=== PATIENT | male | born 1960 | race Caucasian/White ===

== ENCOUNTER 2018-05-19 23:07 | Emergency (ER) | payer SELFPAY ==
[2018-05-19] MEDS ORDERED: ALBUTEROL SULFATE 0.083% NEB 2.5 MG/3 ML AMPUL NEB ONE (23:20)
[2018-05-19] MEDS ORDERED: IPRATROPIUM/ALBUTEROL 0.5-2.5 MG/3 ML AMPUL NEB ONE (23:20)
[2018-05-19] MEDS ORDERED: METHYLPREDNISOLONE INJ 125 MG/2 ML SDV IV ONE (23:20)
--- NOTE | 2018-05-19 23:22 | ER Document Report ---
ED General - General Chief Complaint: Shortness Of Breath Stated Complaint: SHORT OF BREATH Time Seen by Provider: 05/19/18 23:19 Notes: Patient is a 58-year-old male without chronic medical problems, does smoke tobacco daily, presents with 3 days of increasingly worsening shortness of breath and feelings like he is wheezing. He states that the symptoms are worse at night and wonders if it may be related to animal dander exposure as there are cats in his room. Patient denies known history of asthma in the past. He states that he has not trying to improve his symptoms and that he is uncertain of what worsens or triggers his symptoms. He has a history of similar symptoms prior to the past several days. He has not seen his general physician regarding today's concerns. He denies chest pain, fever or constitutional symptoms but does note that he has had associated coughing. TRAVEL OUTSIDE OF THE [place] IN LAST 30 DAYS: No Past Medical History - General Information source: Patient - Social History Smoking Status: Current Every Day Smoker Frequency of alcohol use: None Drug Abuse: None Lives with: Family Family History: Reviewed & Not Pertinent Review of Systems - Review of Systems Notes: Constitutional: Negative for fever. HENT: Negative for sore throat. Eyes: Negative for visual changes. Cardiovascular: Negative for chest pain. Respiratory: Positive for shortness of breath and cough Gastrointestinal: Negative for abdominal pain, vomiting or diarrhea. Genitourinary: Negative for dysuria. Musculoskeletal: Negative for back pain. Skin: Negative for rash. Neurological: Negative for headaches, weakness or numbness. 10 point ROS negative except as marked above and in HPI. Physical Exam - Vital signs Vitals: Temp Pulse Resp BP Pulse Ox 98.5 F 97 30 H 133/77 H 93 05/19/18 23:07 05/19/18 23:07 05/19/18 23:07 05/19/18 23:07 05/19/18 23:07 Interpretation: Hypertensive, Tachypneic Notes: PHYSICAL EXAMINATION: GENERAL: Appears somewhat unwell, in moderate respiratory distress HEAD: Atraumatic, normocephalic. EYES: Pupils equal round and reactive to light, extraocular movements intact, sclera anicteric, conjunctiva are normal. ENT: nares patent, oropharynx clear without exudates. Moderately dry mucous membranes. NECK: Normal range of motion, supple without lymphadenopathy LUNGS: Moderate respiratory distress, unable to speak in a complete sentence. Intercostal retractions are present. Breathing approximately 30-35 times per minute. Diminished air movement locally throughout, scattered wheezing in all lung kaba in the expiratory phase. HEART: Regular tachycardia without murmurs ABDOMEN: Soft, nontender, normoactive bowel sounds. No guarding, no rebound. No masses appreciated. EXTREMITIES: Normal range of motion, no pitting or edema. No cyanosis. NEUROLOGICAL: No focal neurological deficits. Moves all extremities spontaneously and on command. PSYCH: Normal mood, normal affect. SKIN: Warm, Dry, normal turgor, no rashes or lesions noted. Course - Re-evaluation Re-evalutation: 05/19/18 23:21 Patient presents in moderate rotatory distress, severe wheezing and lung kaba, unable to speak in full sentence. He is tachypneic, scattered wheezing in all lung kaba with diminished air movement throughout. No known history of asthma. He does currently smoke every day. Will begin continuous epidural nebulizers, IV Solu-Medrol, placed on lunchroom monitor, obtain chest x-ray, labs and reassess. Patient is in guarded condition given his degree of distress and will require frequent and regular reassessments. 05/20/18 2350 Patient is having gradual improvement of his work of breathing and wheezing on continuous nebulizers. Will continue to reassess. 05/20/18 01:04 Chest x-ray without any evidence of acute infiltrate or pneumothorax. Initial laboratories are normal. Patient is overall much improved at this time, only minimal wheezes at this point on exam. Saturating anywhere between 90-95% on room air. No longer having retractions or difficulty speaking in full sentence. Will again reassess in approximately 30 minutes and if patient continues to be improved plan for likely discharge home. 05/20/18 0200 Patient has continued to have improvement. No distress, significant wheezing or retractions on repeat exam. He will be sent home with an MDI inhaler, pr ednisone, cetirizine. At this time will discharge with return precautions and follow-up recommendations. Verbal discharge instructions given a the bedside and opportunity for questions given. Medication warnings reviewed. Patient is in agreement with this plan and has verbalized understanding of return precautions and the need for primary care follow-up in the next 24-72 hours. - Vital Signs Vital signs: Temp Pulse Resp BP Pulse Ox 98.5 F 97 30 H 133/77 H 93 05/19/18 23:07 05/19/18 23:07 05/19/18 23:07 05/19/18 23:07 05/19/18 23:07 - Laboratory Result Diagrams: 05/20/18 00:01 05/20/18 00:01 Laboratory results interpreted by me: 05/20/18 00:01 Chloride 108 H Glucose 189 H - Diagnostic Test Radiology reviewed: Image reviewed, Reports reviewed Radiology results interpreted by me: 05/20/18 01:05 Chest x-ray: No acute infiltrate pneumothorax - EKG Interpretation by Me Additional EKG results interpreted by me: 05/20/18 02:37 Sinus rhythm. Rate 83. No ST elevations or depressions. QTC is 447. Critical Care Note - Critical Care Note Total time excluding time spent on procedures (mins): 36 Comments: Critical care time spent obtaining history from patient or surrogate, development of treatment plan with patient or surrogate, evaluation of patient's response to treatment, examination of patient, ordering and performing treatments and interventions, ordering and review of laboratory studies, re- evaluation of patient's condition, ordering and review of radiographic studies and review of old charts Discharge - Discharge Clinical Impression: Respiratory distress, Shortness of breath Acute asthma exacerbation Qualifiers: Asthma severity: moderate Asthma persistence: unspecified Qualified Code(s): J45.901 - Unspecified asthma with (acute) exacerbation Condition: Good Disposition: HOME, SELF-CARE Additional Instructions: You were seen for an asthma exacerbation likely triggered by an allergen exposure. Your symptoms improved with treatment here in the emergency department. However, it is very important that you return to the emergency department immediately if you began to have worsening difficulty breathing that does not respond to your normal home nebulizers. You are also being sent home on a five-day course of steroids that you should start taking tomorrow. Please also take cetirizine 10 mg daily which can be purchased directly over the counter. Use the inhaler with which you have been sent home for wheezing or shortness of breath every 2-4 hours as needed. Please also follow closely with your primary care physician. you should also return to emergency department if you develop fever greater than 101, persistent cough, persistent vomiting, pass out, or any other symptoms that are concerning to you. Prescriptions: Albuterol Sulfate [Proair HFA Inhalation Aerosol 8.5 gm MDI] 2 puff IH Q4H PRN #1 mdi PRN Reason: Prednisone [Deltasone 20 mg Tablet] 2 tab PO DAILY 5 Days tablet
[2018-05-20 00:34] LABS: ABSOLUTE BASOPHILS # (AUTO) 0.1 10^3/uL (0.0-0.2); ABSOLUTE EOSINOPHILS # (AUTO) 0.5 10^3/uL (0.0-0.6); ABSOLUTE LYMPHOCYTES (AUTO) 1.8 10^3/uL (0.5-4.7); ABSOLUTE MONOCYTES (AUTO) 0.8 10^3/uL (0.1-1.4); ABSOLUTE NEUT (AUTO) 6.1 10^3/uL (1.7-8.2); BASOPHILS % (AUTO) 0.8 % (0-2); EOSINOPHILS % (AUTO) 5.2 % (0-6); HEMATOCRIT 42.2 % (37.9-51.0); HEMOGLOBIN 14.4 g/dL (13.5-17.0); LYMPHOCYTES % (AUTO) 19.5 % (13-45); MEAN CORPUSCULAR HEMOGLOBIN 32.1 pg (27.0-33.4); MEAN CORPUSCULAR VOLUME 94 fl (80-97); MONOCYTES % (AUTO) 8.3 % (3-13); PLATELET COUNT 188 10^3/uL (150-450); RED BLOOD COUNT 4.48 10^6/uL (4.35-5.55); RED CELL DISTRIBUTION WIDTH 13.4 % (11.5-14.0); SEGMENTED NEUTROPHILS % (AUTO) 66.2 % (42-78); TOTAL CELLS COUNTED % (AUTO) 100 %; WHITE BLOOD COUNT 9.3 10^3/uL (4.0-10.5)
--- NOTE | 2018-05-20 01:00 | RADIOLOGY REPORT (SQ) ---
XR CHEST 1 VIEW HISTORY: SOB. COMPARISON: None. FINDINGS: The cardiomediastinal silhouette is unremarkable. The lungs are clear. No pleural effusion or pneumothorax is identified. IMPRESSION: No acute cardiopulmonary abnormality.
[2018-05-20 01:03] LABS: ANION GAP 10 (5-19); BLOOD UREA NITROGEN 20 mg/dL (7-20); CALCIUM 8.9 mg/dL (8.4-10.2); CARBON DIOXIDE 24 mmol/L (22-30); CHLORIDE 108 mmol/L (98-107); GLUCOSE 189 mg/dL (75-110); POTASSIUM 3.8 mmol/L (3.6-5.0); SODIUM 141.5 mmol/L (137-145)
[2018-05-20] MEDS ORDERED: ALBUTEROL SULFATE HFA (90 MCG/PUFF) 200 PUFF/8.5 GM MDI IH ONE (01:07)
[2018-05-20] MEDS ORDERED: CETIRIZINE 10 MG TABLET PO ONE (01:07)
[2018-05-20 03:06] VITALS: BP 125/82
--- NOTE | 2018-05-20 06:32 | EKG REPORT ---
SEVERITY:- NORMAL ECG - SINUS RHYTHM : Confirmed by: Roel Beck MD 20-May-2018 06:32:12
== END 2018-05-20 01:55 | disposition home or self-care (01) ==
LOC: ER 23:07
DX: R06.03 Acute respiratory distress (principal); R06.02 Shortness of breath; R05 Cough; J45.901 Unspecified asthma with (acute) exacerbation; F17.200 Nicotine dependence, unspecified, uncomplicated
CPT/HCPCS: 93005; 94640 ×2; 99284; 96374; 36415; 85025; 80048; 83880; 71045; 93010; J2930; J3490; J7620

== ENCOUNTER 2018-08-31 02:53 | Emergency (ER) | payer SELFPAY ==
[2018-08-31] MEDS ORDERED: IPRATROPIUM/ALBUTEROL 0.5-2.5 MG/3 ML AMPUL NEB ONE ×2 (03:25→03:31)
[2018-08-31] MEDS ORDERED: PREDNISONE 20 MG TABLET PO ONE (03:31)
--- NOTE | 2018-08-31 03:58 | RADIOLOGY REPORT (SQ) ---
EXAM DESCRIPTION: XR CHEST 1 VIEW COMPLETED DATE/TME: 08/31/2018 03:31 CLINICAL HISTORY: 58 years, Male, dyspnea COMPARISON: None. NUMBER OF VIEWS: 1 TECHNIQUE: Portable chest LIMITATIONS: None. FINDINGS: Heart size normal. Lungs clear. No pneumothorax IMPRESSION: Negative chest copyright 2010 [employer]- All Rights Reserved
[2018-08-31] MEDS ORDERED: ALBUTEROL SULFATE HFA (90 MCG/PUFF) 8 GM MDI (1 MDI/ER DISP) IH ONE (05:03)
--- NOTE | 2018-08-31 05:05 | ER Document Report ---
ED General - General Chief Complaint: Shortness Of Breath Stated Complaint: DIFFICULTY BREATHING Time Seen by Provider: 08/31/18 03:26 TRAVEL OUTSIDE OF THE [place] IN LAST 30 DAYS: No Past Medical History - Social History Smoking Status: Current Every Day Smoker Family History: Reviewed & Not Pertinent Patient has suicidal ideation: No Patient has homicidal ideation: No - Past Medical History Cardiac Medical History: Reports: Hx Hypertension Renal/ Medical History: Denies: Hx Peritoneal Dialysis Physical Exam - Vital signs Vitals: Temp Pulse Resp BP Pulse Ox 98 F 84 28 H 117/78 97 08/31/18 03:00 08/31/18 03:00 08/31/18 03:00 08/31/18 03:00 08/31/18 03:00 Course - Re-evaluation Re-evalutation: 08/31/18 05:04 On reevaluation patient's lung kaba are clear. He looks and feels much improved. He is not in any distress. I feel he safe to be discharged home. I strongly encouraged him to return to ER if he has worsening difficulty breathing, fevers, vomiting, or if he feels unwell. Patient agrees with plan will be discharged home. Patient did have significant wheezing when he arrived. Informed her to try to quit smoking. I did inform the prednisone may raise his blood sugar and therefore he needs to have his blood sugar checked if he is feeling unwell in any way. Dictation of this chart was performed using voice recognition software; therefore, there may be some unintended grammatical errors. 08/31/18 05:04 - Vital Signs Vital signs: Temp Pulse Resp BP Pulse Ox 98 F 84 22 H 104/70 98 08/31/18 03:00 08/31/18 03:00 08/31/18 04:00 08/31/18 04:00 08/31/18 04:00 - Laboratory Laboratory results interpreted by me: 08/31/18 03:33 POC Glucose 114 H Discharge - Discharge Clinical Impression: Dyspnea Qualifiers: Dyspnea type: unspecified Qualified Code(s): R06.00 - Dyspnea, unspecified Condition: Good Disposition: HOME, SELF-CARE Additional Instructions: Please continue to try to cut back on your smoking. We have given you an albuterol inhaler. Please use it as 2 puffs every 4 hours as needed for wheezing or difficulty breathing. Please return to ER immediately if you have worsening difficulty breathing, fevers, or feel unwell. I have prescribed you prednisone. Please have your blood sugar checked if you start feeling unwell or more fatigued. Prescriptions: Prednisone [Deltasone 20 mg Tablet] 1 tab PO DAILY 4 Days tablet Forms: Return to Work
[2018-08-31 05:16] VITALS: BP 118/81
== END 2018-08-31 05:35 | disposition home or self-care (01) ==
LOC: ER 02:53
DX: R06.00 Dyspnea, unspecified (principal); I10 Essential (primary) hypertension; E11.9 Type 2 diabetes mellitus without complications; Z79.84 Long term (current) use of oral hypoglycemic drugs; F17.200 Nicotine dependence, unspecified, uncomplicated
CPT/HCPCS: 94640 ×2; 99285; 82962; 71045; J7512; J3490; J7620

== ENCOUNTER 2018-11-21 10:34 | Emergency (ER) | payer SELFPAY ==
--- NOTE | 2018-11-21 10:54 | ER Document Report ---
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 Patient does have a previous suicide attempt in the past. Patient was most recently admitted to [facility] for 20 days. Patient also has a history of cocaine abuse. Patient has been using cocaine since his discharge from [facility]. Patient does report recent medication changes while he was in the hospital being treated as an inpatient. Patient with a history of depression. I have greeted and performed a rapid initial assessment of this patient. A comprehensive ED assessment and evaluation of the patient, analysis of test results and completion of the medical decision making process will be conducted by additional ED providers. TRAVEL OUTSIDE OF THE [place] IN LAST 30 DAYS: No - Related Data Allergies/Adverse Reactions: No Known Allergies Allergy (Unverified 11/21/18 10:34) Past Medical History - Past Medical History Cardiac Medical History: Reports: Hx Hypertension Renal/ Medical History: Denies: Hx Peritoneal Dialysis Physical Exam - Vital signs Vitals: Temp Pulse Resp BP Pulse Ox 98.9 F 74 16 140/84 H 99 11/21/18 10:38 11/21/18 10:38 11/21/18 10:38 11/21/18 10:38 11/21/18 10:38 - Psychological Associated symptoms: Depressed Course - Vital Signs Vital signs: Temp Pulse Resp BP Pulse Ox 98.9 F 74 16 140/84 H 99 11/21/18 10:38 11/21/18 10:38 11/21/18 10:38 11/21/18 10:38 11/21/18 10:38
[2018-11-21 11:31] LABS: ABSOLUTE LYMPHOCYTES (AUTO) 1.6 10^3/uL (0.5-4.7); ABSOLUTE MONOCYTES (AUTO) 1.3 10^3/uL (0.1-1.4); ABSOLUTE NEUT (AUTO) 5.7 10^3/uL (1.7-8.2); BASOPHILS % (AUTO) 0.4 % (0-2); EOSINOPHILS % (AUTO) 0.1 % (0-6); HEMATOCRIT 43.9 % (37.9-51.0); HEMOGLOBIN 14.9 g/dL (13.5-17.0); LYMPHOCYTES % (AUTO) 18.8 % (13-45); MEAN CORPUSCULAR HEMOGLOBIN 31.6 pg (27.0-33.4); MEAN CORPUSCULAR VOLUME 93 fl (80-97); PLATELET COUNT 227 10^3/uL (150-450); RED BLOOD COUNT 4.73 10^6/uL (4.35-5.55); RED CELL DISTRIBUTION WIDTH 15.3 % (11.5-14.0); SEGMENTED NEUTROPHILS % (AUTO) 65.7 % (42-78); TOTAL CELLS COUNTED % (AUTO) 100 %; WHITE BLOOD COUNT 8.7 10^3/uL (4.0-10.5)
[2018-11-21 11:34] VITALS: BP 119/79
[2018-11-21 11:47] LABS: APPEARANCE,URINE CLEAR; BILIRUBIN,URINE NEGATIVE (NEGATIVE); COLOR,URINE YELLOW; GLUCOSE, URINE 150 mg/dL (NEGATIVE); KETONES,URINE TRACE mg/dL (NEGATIVE); LEUKOCYTE ESTERASE,URINE NEGATIVE (NEGATIVE); NITRITE,URINE NEGATIVE (NEGATIVE); PROTEIN,URINE NEGATIVE (NEGATIVE); URINE SPECIFIC GRAVITY 1.026; UROBILINOGEN,URINE NEGATIVE mg/dL (<2.0)
[2018-11-21 12:01] LABS: ALANINE AMINOTRANSFERASE 23 U/L (21-72); ALBUMIN 3.7 g/dL (3.5-5.0); ALKALINE PHOSPHATASE 40 U/L (38-126); ANION GAP 6 (5-19); ASPARTATE AMINO TRANSFERASE 26 U/L (17-59); BILIRUBIN,DIRECT 0.3 mg/dL (0.0-0.4); BILIRUBIN,TOTAL 0.9 mg/dL (0.2-1.3); BLOOD UREA NITROGEN 30 mg/dL (7-20); CALCIUM 8.9 mg/dL (8.4-10.2); CARBON DIOXIDE 29 mmol/L (22-30); CHLORIDE 105 mmol/L (98-107); GLUCOSE 94 mg/dL (75-110); POTASSIUM 4.5 mmol/L (3.6-5.0); SODIUM 139.5 mmol/L (137-145); TOTAL PROTEIN 5.8 g/dL (6.3-8.2)
[2018-11-21 12:03] LABS: ACETAMINOPHEN < 10 ug/mL (10-30); ALCOHOL < 10 mg/dL (NONE DETECTED); SALICYLATE < 1.0 mg/dL (2.0-20.0)
[2018-11-21 12:05] LABS: URINE AMPHETAMINES SCREEN NEGATIVE; URINE BARBITURATES SCREEN NEGATIVE; URINE BENZODIAZEPINES SCREEN NEGATIVE; URINE COCAINE SCREEN NEGATIVE; URINE MARIJUANA (THC) SCREEN NEGATIVE; URINE METHADONE SCREEN NEGATIVE; URINE PHENCYCLIDINE SCREEN NEGATIVE
--- NOTE | 2018-11-21 12:16 | ER Document Report ---
ED General <MENDEZ DAVIS - Last Filed: 11/21/18 14:22> - General Mode of Arrival: Ambulatory Information source: Patient, [facility] Records TRAVEL OUTSIDE OF THE [place] IN LAST 30 DAYS: No - HPI Onset: Other Onset/Duration: Sudden Quality of pain: No pain Severity: None Pain Level: Denies Associated symptoms: None. denies: Chest pain, Diarrhea, Fever, Headache, Nausea, Vomiting, Shortness of breath, Sore throat, Sweating Exacerbated by: Denies Relieved by: Denies Similar symptoms previously: Yes Recently seen / treated by doctor: Yes <PADMINI WOLF - Last Filed: 11/21/18 17:31> - General Chief Complaint: Suicidal Ideation Stated Complaint: PSYCH EVAL Time Seen by Provider: 11/21/18 10:52 Primary Care Provider: [facility] [Provider Group] - Follow up as needed [facility] [Outside] - Follow up as needed Notes: Patient presents with his mobile fast foods worker and family member with concerns about suicidal ideation with a plan to overdose on his medications. Patient does have a previous suicide attempt in the past. Patient was most recently admitted to [facility] for 20 days. Patient also has a history of cocaine abuse. Patient has been using cocaine since his discharge from [facility]. Patient does report recent medication changes while he was in the hospital being treated as an inpatient. Patient with a history of depression. Patient also states that his of 30 years has left him which has left him heartbroken and he is having a difficult time dealing with this. (PADMINI WOLF) - Related Data Allergies/Adverse Reactions: No Known Allergies Allergy (Unverified 11/21/18 10:34) Past Medical History - General Information source: Patient - Social History Smoking Status: Current Every Day Smoker Cigarette use (# per day): Yes - 15 Chew tobacco use (# tins/day): No Smoking Education Provided: Yes - Smoking cessation counseling was provided for 4 minutes at the bedside Frequency of alcohol use: None Drug Abuse: Cocaine, Marijuana Lives with: Family Family History: Reviewed & Not Pertinent Patient has suicidal ideation: Yes Patient has homicidal ideation: No - Past Medical History Cardiac Medical History: Reports: Hx Hypertension Renal/ Medical History: Denies: Hx Peritoneal Dialysis Psychiatric Medical History: Reports: Hx Depression Past Surgical History: Reports: Hx Abdominal Surgery - hernia, Hx Urinary Tract Surgery - vasectomy <PADMINI WOLF - Last Filed: 11/21/18 17:31> Review of Systems <PADMINI WOLF - Last Filed: 11/21/18 17:31> - Review of Systems Notes: REVIEW OF SYSTEMS: CONSTITUTIONAL : Denies fever, chills, or sweats. Denies recent illness. Denies weight loss, recent hospitalizations. EENT: Denies visual changes, eye pain. Denies sore throat, oral lesions, difficulty swallowing. CARDIOVASCULAR: Denies chest pain. Denies palpitations. Denies lower extremity edema. RESPIRATORY: Denies cough. Denies shortness of breath, wheezing. GASTROINTESTINAL: Denies abdominal pain or distention. Denies nausea, vomiting, or diarrhea. Denies blood in vomitus, stools, or per rectum. Denies black, tarry stools. Denies constipation. GENITOURINARY: Denies difficulty urinating, painful urination, frequency, blood in urine, testicular pain or penile discharge. MUSCULOSKELETAL: Denies back or neck pain or stiffness. Denies joint pain or swelling. SKIN: Denies rash, lesions or sores. HEMATOLOGIC : Denies easy bruising or bleeding. LYMPHATIC: Denies swollen glands. NEUROLOGICAL: Denies confusion or altered mental status. Denies loss of consciousness. Denies dizziness or lightheadedness. Denies headache. Denies weakness or paralysis. Denies problems difficulty with ambulation, slurred speech. Denies sensory loss, numbness, or tingling. Denies seizures. PSYCHIATRIC: Denies anxiety or stress. Positive suicidal ideation (PADMINI WOLF) Physical Exam <PADMINI WOLF - Last Filed: 11/21/18 17:31> - Vital signs Vitals: Temp Pulse Resp BP Pulse Ox 98.9 F 74 16 140/84 H 99 11/21/18 10:38 11/21/18 10:38 11/21/18 10:38 11/21/18 10:38 11/21/18 10:38 - Notes Notes: PHYSICAL EXAMINATION: GENERAL: Well-appearing, well-nourished and in no acute distress. HEAD: Atraumatic, normocephalic. EYES: Pupils equal round and reactive to light, extraocular movements intact, sclera anicteric, conjunctiva are normal. ENT: Nares patent, oropharynx clear without exudates. Moist mucous membranes. NECK: Normal range of motion, supple without lymphadenopathy LUNGS: Breath sounds clear to auscultation bilaterally and equal. No wheezes rales or rhonchi. HEART: Regular rate and rhythm without murmurs ABDOMEN: Soft, nontender, nondistended abdomen. No guarding, no rebound. No masses appreciated. Musculoskeletal: Normal range of motion, no pitting or edema. No cyanosis. NEUROLOGICAL: Cranial nerves grossly intact. Normal speech, normal gait. Normal sensory, motor exams PSYCH: Admits to suicidal ideation denies homicidal ideation or any hallucinations. Does admit to recent cocaine use. SKIN: Warm, Dry, normal turgor, no rashes or lesions noted. (PADMINI WOLF) Course - Laboratory Result Diagrams: 11/21/18 11:08 11/21/18 11:08 <MENDEZ DAVIS - Last Filed: 11/21/18 14:22> - Laboratory Result Diagrams: 11/21/18 11:08 11/21/18 11:08 - EKG Interpretation by Ar EKG shows normal: Sinus rhythm Rate: Normal Rhythm: NSR When compared to previous EKG there are: No significant change <PADMINI WOLF - Last Filed: 11/21/18 17:31> - Re-evaluation Re-evalutation: 11/21/18 17:29 Laboratory 11/21/18 11/21/18 11/21/18 11:02 11:02 11:08 WBC 8.7 RBC 4.73 Hgb 14.9 Hct 43.9 MCV 93 MCH 31.6 MCHC 34.0 RDW 15.3 H Plt Count 227 Seg Neutrophils % 65.7 Lymphocytes % 18.8 Monocytes % 15.0 H Eosinophils % 0.1 Basophils % 0.4 Absolute Neutrophils 5.7 Absolute Lymphocytes 1.6 Absolute Monocytes 1.3 Absolute Eosinophils 0.0 Absolute Basophils 0.0 Sodium Potassium Chloride Carbon Dioxide Anion Gap BUN Creatinine Est GFR ( Amer) Est GFR (Non-Af Amer) Glucose Calcium Total Bilirubin Direct Bilirubin Neonat Total Bilirubin Neonat Direct Bilirubin Neonat Indirect Bili AST ALT Alkaline Phosphatase Total Protein Albumin Urine Color YELLOW Urine Appearance CLEAR Urine pH 6.0 Ur Specific Alpha 1.026 Urine Protein NEGATIVE Urine Glucose (UA) 150 H Urine Ketones TRACE H Urine Blood NEGATIVE Urine Nitrite NEGATIVE Urine Bilirubin NEGATIVE Urine Urobilinogen NEGATIVE Ur Leukocyte Esterase NEGATIVE Urine WBC (Auto) 0 Urine RBC (Auto) 0 Urine Mucus (Auto) RARE Urine Ascorbic Acid NEGATIVE Salicylates Urine Opiates Screen NEGATIVE Urine Methadone Screen NEGATIVE Acetaminophen Ur Barbiturates Screen NEGATIVE Valproic Acid Ur Phencyclidine Scrn NEGATIVE Ur Amphetamines Screen NEGATIVE U Benzodiazepines Scrn NEGATIVE Urine Cocaine Screen NEGATIVE U Marijuana (THC) Screen NEGATIVE Serum Alcohol 11/21/18 11/21/18 11:08 11:08 WBC RBC Hgb Hct MCV MCH MCHC RDW Plt Count Seg Neutrophils % Lymphocytes % Monocytes % Eosinophils % Basophils % Absolute Neutrophils Absolute Lymphocytes Absolute Monocytes Absolute Eosinophils Absolute Basophils Sodium 139.5 Potassium 4.5 Chloride 105 Carbon Dioxide 29 Anion Gap 6 BUN 30 H Creatinine 1.23 Est GFR ( Amer) > 60 Est GFR (Non-Af Amer) > 60 Glucose 94 Calcium 8.9 Total Bilirubin 0.9 Direct Bilirubin 0.3 Neonat Total Bilirubin Not Reportable Neonat Direct Bilirubin Not Reportable Neonat Indirect Bili Not Reportable AST 26 ALT 23 Alkaline Phosphatase 40 Total Protein 5.8 L Albumin 3.7 Urine Color Urine Appearance Urine pH Ur Specific Alpha Urine Protein Urine Glucose (UA) Urine Ketones Urine Blood Urine Nitrite Urine Bilirubin Urine Urobilinogen Ur Leukocyte Esterase Urine WBC (Auto) Urine RBC (Auto) Urine Mucus (Auto) Urine Ascorbic Acid Salicylates < 1.0 L Urine Opiates Screen Urine Methadone Screen Acetaminophen < 10 L Ur Barbiturates Screen Valproic Acid 11.3 L Ur Phencyclidine Scrn Ur Amphetamines Screen U Benzodiazepines Scrn Urine Cocaine Screen U Marijuana (THC) Screen Serum Alcohol < 10 Temp Pulse Resp BP Pulse Ox 98.6 F 72 20 119/79 99 11/21/18 11:00 11/21/18 11:00 11/21/18 11:00 11/21/18 11:00 11/21/18 11:00 58-year-old male presents with complaint of relapse of his cocaine addiction, increased depression. Denies any current suicidal ideation. States that he did try to overdose on medication several months ago but has no current plan now. Vital signs reviewed and within normal limits. Patient does not appear toxic, dehydrated. Previous medical records and nursing notes reviewed. Patient was evaluated by behavioral health and deemed safe for discharge. No significant lab findings. Discharge resources have been provided. Patient was evaluated and treated as appropriate for the patient's presenting symptoms and complaint, with consideration of any critical or life threatening conditions that may be associated with their obtained history and exam as noted above. All results were discussed with patient. Patient provided the opportunity to ask questions, and express concerns. Patient was educated on treatments based on their presumed diagnosis as noted above. At this time we will discharge the patient with return precautions and follow-up recommendations. Verbal discharge instructions given a the bedside. Medication warnings reviewed. Patient is in agreement with this plan and has verbalized understanding of return precautions. After careful consideration I feel that that patient can be safely discharged from the emergency department, they were advised to followup with a primary care physician in 2-3 days. Dictation on this chart was performed using voice recognition software and may result in unintended grammatical, spelling, syntax or errors. (PADMINI WOLF) - Vital Signs Vital signs: Temp Pulse Resp BP Pulse Ox 98.6 F 72 20 119/79 99 11/21/18 11:00 11/21/18 11:00 11/21/18 11:00 11/21/18 11:00 11/21/18 11:00 - Laboratory Laboratory results interpreted by me: 11/21/18 11/21/18 11/21/18 11:02 11:08 11:08 RDW 15.3 H Monocytes % 15.0 H BUN 30 H Total Protein 5.8 L Urine Glucose (UA) 150 H Urine Ketones TRACE H Salicylates < 1.0 L Acetaminophen < 10 L Valproic Acid 11/21/18 11:08 RDW Monocytes % BUN Total Protein Urine Glucose (UA) Urine Ketones Salicylates Acetaminophen Valproic Acid 11.3 L Discharge <MENDEZ DAVIS - Last Filed: 11/21/18 14:22> <PADMINI WOLF - Last Filed: 11/21/18 17:31> - Discharge Clinical Impression: Substance abuse Condition: Stable Disposition: HOME, SELF-CARE Additional Instructions: You have been evaluated by both medical and mental health teams and have been deemed appropriate for discharge. you are encourged to engage in substance abuse treatment and take your prescribed medications as directed. You have been provided a resource list of area providers for both mental health and substance abuse in addition to mobile crisis contact information. AT ANY TIME, IF YOUR SYMPTOMS CHANGE SIGNIFICANTLY OR WORSEN OR YOU DEVELOP NEW SYMPTOMS, RETURN TO THE EMERGENCY DEPARTMENT IMMEDIATELY FOR RE-EVALUATION. Referrals: [facility] [Provider Group] - Follow up as needed [facility] [Outside] - Follow up as needed
--- NOTE | 2018-11-21 20:28 | EKG REPORT ---
SEVERITY:- NORMAL ECG - SINUS RHYTHM : Confirmed by: Kwadwo Casillas 21-Nov-2018 20:27:35
--- NOTE | 2018-11-24 13:15 | PSYCHOLOGICAL NOTE ---
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 Patient was recently treated at [facility] for approximately 20 days after intentional overdose. Patient reports that when asked about suicidal ideation he was talking about his previous attempt that resulted in his inpatient treatment at [facility]. Patient continued to disclose that he has nowhere to live and is concerned that if he does not receive inpatient treatment his sister will not allow him to live at her house anymore. Clinician notes patient's sister reports patient has been stealing and doing cocaine since his release from [facility]. Patient originally confirms substance abuse however then reports that he does not know what cocaine looks like. Toxicology indicates no findings. Patient is alert and orientated to person, place, time and circumstance. Patient presents healthy weight and well-groomed. Clinician notes scar in center of patient's forehead with slight indentation. Mood is slightly anxious with congruent affect. Patient denies current suicidal ideation. [facility] ideation apparently was the patient discussing his previous suicide attempt and treatment. Patient denies homicidal ideation. Delusions are absent behaviors congruent with an intact reality based presentation i.e. organized and linear thought process. Eye contact was well- maintained. Conversational speech has noticeable stutter. Intellectual abilities appear to be low average range. Attention and concentration are good. Insight, judgment, impulse control are fair. Depression per history provided by patient Substance abuse per history provided by family however, patient denies and toxicology indicates no findings R/O TBI/IDD no medication recommendations at this time Impression/Plan: Patient is cleared from acute psychiatric services. Patient does not meet IVC criteria per [place] GS 122C. Patient had originally disclosed suicidal ideation however it was later identified that the patient was discussing his previous suicidal ideation, attempt and inpatient treatment. Patient denied current suicidal ideation. Clinician notes that patient was concerned that if he did not receive inpatient psychiatric treatment he would not be able to live with his sister anymore. Referral to [facility] has been submitted. While there is reports of concerned substance abuse the patient does not present with congruent substance abuse i.e. is unable to disclose what drugs look like or how to use them. Dr. Cook was consulted to care management of this patient; attending physicians in agreement with recommendations and disposition.
== END 2018-11-21 16:30 | disposition home or self-care (01) ==
LOC: ER 10:34
DX: F14.10 Cocaine abuse, uncomplicated (principal); F12.10 Cannabis abuse, uncomplicated; Z63.5 Disruption of family by separation and divorce; R45.851 Suicidal ideations; I10 Essential (primary) hypertension; F17.210 Nicotine dependence, cigarettes, uncomplicated; Z71.6 Tobacco abuse counseling; Z91.5 Personal history of self-harm
CPT/HCPCS: 36415; 80053; 80164; 80307; 81001; 85025; 93005; 93010; 99285

== ENCOUNTER 2018-11-30 10:22 | Emergency (ER) | payer SELFPAY ==
[2018-11-30 10:33] VITALS: BP 118/86
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
[2018-11-30 11:23] LABS: APPEARANCE,URINE CLEAR; BILIRUBIN,URINE NEGATIVE (NEGATIVE); COLOR,URINE YELLOW; GLUCOSE, URINE 150 mg/dL (NEGATIVE); KETONES,URINE 20 mg/dL (NEGATIVE); LEUKOCYTE ESTERASE,URINE NEGATIVE (NEGATIVE); NITRITE,URINE NEGATIVE (NEGATIVE); PROTEIN,URINE NEGATIVE (NEGATIVE); URINE SPECIFIC GRAVITY 1.015; UROBILINOGEN,URINE NEGATIVE mg/dL (<2.0)
[2018-11-30 11:32] LABS: ABSOLUTE LYMPHOCYTES (AUTO) 1.3 10^3/uL (0.5-4.7); ABSOLUTE MONOCYTES (AUTO) 0.6 10^3/uL (0.1-1.4); ABSOLUTE NEUT (AUTO) 5.4 10^3/uL (1.7-8.2); BASOPHILS % (AUTO) 0.5 % (0-2); EOSINOPHILS % (AUTO) 0.4 % (0-6); HEMOGLOBIN 14.4 g/dL (13.5-17.0); LYMPHOCYTES % (AUTO) 18.2 % (13-45); MEAN CORPUSCULAR HEMOGLOBIN 31.5 pg (27.0-33.4); MEAN CORPUSCULAR HGB CONC 34.2 g/dL (32.0-36.0); MEAN CORPUSCULAR VOLUME 92 fl (80-97); MONOCYTES % (AUTO) 7.8 % (3-13); PLATELET COUNT 173 10^3/uL (150-450); RED BLOOD COUNT 4.57 10^6/uL (4.35-5.55); RED CELL DISTRIBUTION WIDTH 13.7 % (11.5-14.0); SEGMENTED NEUTROPHILS % (AUTO) 73.1 % (42-78); TOTAL CELLS COUNTED % (AUTO) 100 %; WHITE BLOOD COUNT 7.4 10^3/uL (4.0-10.5)
[2018-11-30 11:37] LABS: URINE AMPHETAMINES SCREEN NEGATIVE; URINE BARBITURATES SCREEN NEGATIVE; URINE BENZODIAZEPINES SCREEN NEGATIVE; URINE COCAINE SCREEN NEGATIVE; URINE MARIJUANA (THC) SCREEN NEGATIVE; URINE METHADONE SCREEN NEGATIVE; URINE PHENCYCLIDINE SCREEN NEGATIVE
[2018-11-30 11:51] LABS: ACETAMINOPHEN < 10 ug/mL (10-30); ALANINE AMINOTRANSFERASE 31 U/L (21-72); ALCOHOL < 10 mg/dL (NONE DETECTED); ALKALINE PHOSPHATASE 39 U/L (38-126); ANION GAP 10 (5-19); ASPARTATE AMINO TRANSFERASE 27 U/L (17-59); BILIRUBIN,DIRECT 0.2 mg/dL (0.0-0.4); BILIRUBIN,TOTAL 0.9 mg/dL (0.2-1.3); BLOOD UREA NITROGEN 17 mg/dL (7-20); CALCIUM 9.1 mg/dL (8.4-10.2); CARBON DIOXIDE 28 mmol/L (22-30); CHLORIDE 97 mmol/L (98-107); GLUCOSE 86 mg/dL (75-110); POTASSIUM 4.1 mmol/L (3.6-5.0); SALICYLATE < 1.0 mg/dL (2.0-20.0); SODIUM 135.1 mmol/L (137-145); TOTAL PROTEIN 6.2 g/dL (6.3-8.2)
--- NOTE | 2018-11-30 12:16 | ER Document Report ---
ED Psych Disorder / Suicide <DAVISMENDEZ - Last Filed: 11/30/18 12:19> - General Mode of Arrival: Ambulatory TRAVEL OUTSIDE OF THE [place] IN LAST 30 DAYS: No <JADA KAUFMAN - Last Filed: 11/30/18 12:54> - General Chief Complaint: Suicidal Ideation Stated Complaint: SUICIDAL IDEATION Time Seen by Provider: 11/30/18 10:42 Primary Care Provider: [facility] [Provider Group] - Follow up as needed [facility] [Outside] - Follow up as needed Notes: Patient is here saying that he is "messed up psychologically". Says he feels suicidal. Claims to be homeless. Says he was in [facility] for 20 days recently. Says he has not eaten for 2 days. Says he feels he has nothing to live for. (JADA KAUFMAN) - Related Data Allergies/Adverse Reactions: No Known Allergies Allergy (Verified 11/30/18 10:22) Past Medical History - General Information source: Patient - Social History Smoking Status: Current Every Day Smoker Chew tobacco use (# tins/day): No Frequency of alcohol use: None Drug Abuse: None Family History: Reviewed & Not Pertinent Patient has suicidal ideation: Yes Patient has homicidal ideation: Yes - Past Medical History Cardiac Medical History: Reports: Hx Hypertension Psychiatric Medical History: Reports: Hx Depression Past Surgical History: Reports: Hx Abdominal Surgery - hernia, Hx Urinary Tract Surgery - vasectomy <JADA KAUFMAN - Last Filed: 11/30/18 12:54> Review of Systems <JADA KAUFMAN - Last Filed: 11/30/18 12:54> - Review of Systems Notes: CONSTITUTIONAL : Denies fever. CARDIOVASCULAR: Denies chest pain. RESPIRATORY: Denies cough, chest congestion, or shortness of breath. GASTROINTESTINAL: Denies abdominal pain or nausea, vomiting, or diarrhea. GENITOURINARY: Denies difficulty or painful urinating, urinary frequency, blood in urine. (JADA KAUFMAN) Physical Exam - Vital signs Interpretation: Normal <JADA KAUFMAN - Last Filed: 11/30/18 12:54> - Vital signs Vitals: Temp Pulse Resp BP Pulse Ox 99.3 F 81 18 118/86 H 96 11/30/18 10:31 11/30/18 10:31 11/30/18 10:31 11/30/18 10:31 11/30/18 10:31 Notes: PHYSICAL EXAMINATION: GENERAL: Well-appearing, no acute distress. HEAD: Atraumatic, normocephalic. NECK: Normal range of motion, supple. LUNGS: Breath sounds clear and equal bilaterally. HEART: Regular rate and rhythm without murmurs heard. ABDOMEN: Soft, nontender. No guarding or rebound or masses felt. (JADA KAUFMAN) Course - Laboratory Result Diagrams: 11/30/18 11:05 11/30/18 11:05 <MENDEZ DAVIS - Last Filed: 11/30/18 12:19> - Laboratory Result Diagrams: 11/30/18 11:05 11/30/18 11:05 <JADA KAUFMAN - Last Filed: 11/30/18 12:54> - Re-evaluation Re-evalutation: 11/30/18 12:53 Labs are all essentially normal. Sodium was 135. Vital signs are all essentially normal. Patient has been evaluated by mental health who feels that he can be discharged for outpatient follow-up. Patient appears to be need to be medically stable for transfer or discharge. Griselda Kaufman MD (JADA KAUFMAN) - Vital Signs Vital signs: Temp Pulse Resp BP Pulse Ox 99.3 F 81 18 118/86 H 96 11/30/18 10:31 11/30/18 10:31 11/30/18 10:31 11/30/18 10:31 11/30/18 10:31 - Laboratory Laboratory results interpreted by me: 11/30/18 11/30/18 10:45 11:05 Sodium 135.1 L Chloride 97 L Total Protein 6.2 L Urine Glucose (UA) 150 H Urine Ketones 20 H Salicylates < 1.0 L Acetaminophen < 10 L Discharge <MENDEZ DAVIS - Last Filed: 11/30/18 12:19> <JADA KAUFMAN - Last Filed: 11/30/18 12:54> - Discharge Clinical Impression: Unspecified personality disorder, Autism Condition: Stable Disposition: HOME, SELF-CARE Additional Instructions: You have been evaluated by both medical and behavioral health teams and have been deemed appropriate for discharge. You have been provided resource list of economic assistance. You are recommended to continue working with [facility] and your outpatient mental health provider, [facility]. AT ANY TIME, IF YOUR SYMPTOMS CHANGE SIGNIFICANTLY OR WORSEN OR YOU DEVELOP NEW SYMPTOMS, RETURN TO THE EMERGENCY DEPARTMENT IMMEDIATELY FOR RE-EVALUATION. Referrals: [facility] [Outside] - Follow up as needed [facility] [Provider Group] - Follow up as needed
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
--- NOTE | 2018-11-30 18:32 | EKG REPORT ---
SEVERITY:- NORMAL ECG - SINUS RHYTHM : Confirmed by: Kwadwo Casillas 30-Nov-2018 18:31:44
== END 2018-11-30 13:05 | disposition home or self-care (01) ==
LOC: ER 10:22
DX: F84.0 Autistic disorder (principal); F60.9 Personality disorder, unspecified; R45.851 Suicidal ideations; Z59.0 Homelessness; I10 Essential (primary) hypertension
CPT/HCPCS: 36415; 80053; 80307; 81001; 85025; 93005; 93010; 99285